=== PATIENT | female | born 1980 | race Caucasian/White ===

== ENCOUNTER 2017-09-11 15:11 | Outpatient (CLI) | payer OTHER ==
--- NOTE | 2017-09-11 17:10 | MRI ---
MRI OF THE LEFT KNEE WITHOUT CONTRAST: 09/11/17 INDICATION: Left knee pain since injury on August 08. COMPARISON: Prior left knee radiographs dated 08/10/17. FINDINGS: No joint effusion is evident. No popliteal cyst is demonstrated. The ACL, PCL, MCL, and LCLC are intact. The medial and lateral menisci are intact. The articular cartilage of the femorotibial and patellofemoral compartments appears preserved. There is some bone marrow edema involving the medial aspect of the superior patella on image 16 which may be related to direct contusion. The medial patellar retinaculum and medial patellofemoral ligam ent appears intact. IMPRESSION: Marrow edema involving the medial aspect of the patella may reflect sequela of direct or blunt injury . POS: [facility]
== END 2017-09-11 15:12 | disposition home or self-care (01) ==
LOC: SCSMRI 15:11
PROVIDERS: ATTEND Family Medicine
DX: S86.919A Strain of unspecified muscle(s) and tendon(s) at lower leg level, unspecified leg, initial encounter (principal); R60.0 Localized edema

== ENCOUNTER 2018-03-19 12:54 | Day surgery (SDC) | payer OTHER ==
[2018-03-18 09:48] VITALS: BMI 22.4
[~2018-03-19 12:54] MED LIST: Dexamethasone 20 MG/5 ML VIAL ONE; Lidocaine 1% PF 5 ML VIAL ONE; Ondansetron HCl/PF 4 MG/2 ML Vial ONE; PHENYLEPHRINE-NS 100 MCG/ML 10 ML SYRINGE ONE; PROPOFOL 200 MG/20 ML VIAL ONE
[2018-03-19] MEDS ORDERED: CEFAZOLIN/Water 2 GM/20 ML SYRINGE ONE (13:19)
[2018-03-19 13:50] LABS: #Basophils 0.1 thou/uL (0.0-0.2); #Eosinphils 0.2 thou/uL (0.0-0.7); #Lymphocytes 3.2 thou/uL (1.20-3.40); #Monocytes 0.5 thou/uL (0.11-0.59); #Neutrophils 4.9 thou/uL (1.40-6.50); %Basophils 1.3 % (0.0-1.0); %Eosinophils 1.9 % (0.0-10.0); %Lymphocytes 35.9 % (21.0-51.0); %Monocytes 5.4 % (0.0-10.0); %Neutrophils 55.5 % (42.0-75.0); Hemoglobin 12.4 g/dL (12.0-16.0); Mean Corpuscular HGB CONC 34.6 g/dL (32.0-36.0); Mean Corpuscular Hemoglobin 32.1 pg (27.0-31.0); Mean Corpuscular Volume 92.6 fL (78.0-98.0); Platelet Count 212 thou/uL (130-400); RBC Distribution Width 11.5 % (11.5-14.5); Red Blood Cell (RBC) Count 3.85 mill/uL (4.20-5.40); White Blood Cell (WBC) Count 8.8 thou/uL (4.8-10.8)
[2018-03-19] MEDS ORDERED: Lidocaine 2% Jelly 5 ML TUBE ONE (14:10)
[2018-03-19] MEDS ORDERED: Sodium Chloride 0.9% 10 ML ONE (14:55)
[2018-03-19] MEDS ORDERED: Bacitracin Zinc Ointment 30 gm TUBE ONE (14:55)
[2018-03-19] MEDS ORDERED: Bupivacaine PF 0.5% 30 ML VIAL ONE (14:55)
[2018-03-19] MEDS ORDERED: Ketorolac Tromethamine 30 MG/ML VIAL ONE ×2 (15:28→20:14)
[2018-03-19] MEDS ORDERED: Midazolam HCl 2 mg/2 ml Vial ONE ×2 (15:39→16:04)
[2018-03-19] MEDS ORDERED: Fentanyl 100 MCG/2 ML VIAL ONE ×2 (15:40→18:20)
[2018-03-19] MEDS ORDERED: Propofol 500 MG/50 ML VIAL ONE (16:40)
--- NOTE | 2018-03-19 21:01 | RAD ---
RIGHT FINGER TWO VIEW: 03/19/18 HISTORY: ORIF. COMPARISON: Finger radiograph 03/11/18. FINDINGS: Multiple fluoroscopic images were obtained. There are two screws through the middle phalanx base vola r aspect of the ring finger. There is also a screw through the hamate. IMPRESSION: Fluoroscopy for surgical use. POS: NATASHA
--- NOTE | 2018-03-20 05:12 | OP ---
DATE OF PROCEDURE: 03/19/2018 PREOPERATIVE DIAGNOSIS: Fracture dislocation, right ring finger proximal phalangeal joint (base of P 2 comminuted fracture with dislocation dorsal and sagittal plane). POSTOPERATIVE DIAGNOSIS: Fracture dislocation, right ring finger proximal phalangeal joint (base of P2 comminuted fracture with dislocation dorsal and sagittal plane). PROCEDURE PERFORMED: 1. C-arm supervision. 2. Arthrotomy with volar plate release, proximal phalangeal joint, right ring finger. 3. Open reduction and internal fixation proximal aspect of the middle phalanx intraarticular fractur e with irene-irene osteochondral graft from the ipsilateral right side. 4. Bone graft, open reduction and fixation of the hand make defect or hand make/carpal bone open red uction internal fixation of the scaphoid. ESTIMATED BLOOD LOSS: 20 mL TOURNIQUET TIME: 25 minutes. FINDINGS: 50% articular comminution and sagittal plane with gross instability, marked stretching of the full and irreparable comminution of the volar 40%-50% of the base of middle phalanx at the PIP kate int. DESCRIPTION OF PROCEDURE: After esophageal endotracheal anesthesia, limb was prepped and draped. Th e patient had the C-arm brought to the field. Closed reduction was accomplished and although we coul d see some bone, it whenever would align to less than 2 mm step off and therefore, we then proceeded to inject the patient. After timeout was done with 20 mL 0.5% Marcaine, 10 at the level of the MP kate int and 10 at the harvest site of the 4th and 5th carpometacarpal joint or hammering. We then volar approach made a Edouard incision beginning radially distally at the DIP joint flexor cre ase ulnarly across the PIP joint flexion crease and then radiated back towards the palm base. This k ept the skin and subcutaneous tissue medially. A neuroplasty was performed identified neurovascular bundle, protected throughout the entire field. We carried down, passed crease of the limbs to expose the collateral ligaments. I then released in the sheath between the two A3 pulleys and then dissect ed down to we could move the tendons completely ulnarly and completely radially. First on the radial side, release to be performed. Beginning on the radial side first, we performed a V-shaped release of the volar plate as far distal as possible. We then dissected back, which re-created a flap that w as proximally based. This allowed for complete exposure to the joint. We then noticed to visualize the fracture fragment which was in 4 pieces, none of which could even hold 0.035 K-wire, so we then r emoved these, banded and open reduction internal fixation primarily. We then from inside out/from th e arthrotomy of the joint inside out, we released the collaterals from the base of the middle phalanx . This was done radially and ulnarly. We then teased the dorsal capsule and was able to complete a shotgun with flexed and radially, the joint to visualize the comminution. The comminution was severe and therefore it was initially approximately 35%-40% direct involvement, but there was so much subch ondral comminution. We then ended up making a rectangular shaped donor plateau for hamate graft and that was approximately 9 mm wide, 5.5 mm high, and 4 mm deep. We reduced the shotgun joint, cup placed in moist Ray-Brittaney in this area and then proceeded to the wris t. Using this, I identified the 4th and 5th carpometacarpal joint, made a zigzag incision over this area as we had already given 10 mL of 0.5% Marcaine. The patient then had the joint capsule opened b y creating an ulnarly based flap, protecting the ulnar cutaneous nerves. We then visualized the join t, we had made our measurements as listed above and then at that same measurement of approximately 1 mL with, 4.5 mm depth, and height of approximately 5 mm, we harvested a bone graft. There was minima l comminution of this technique and we did not have to make osteotomy at the base of the component of the metacarpals. Now, we placed a moist sponge in the hamate defect, returned, sized the hamate fir st and had to reduce its height and depth to make it measures for him as possible. We then placed a K-wire to suck on 0.35, and then placed palmar to dorsal 1.5 screws with excellent fit. Both screws were approximately 2 mm we then changed to size 9 screws for a size 11. Had excellent purchase and at this time we reduced the joint, radiographs show excellent position of the joint and the join t was stable from -10 degrees extension passively to 110 degrees flexion. We then closed the V incision of the volar plate into a wide fashion lengthening it somewhat. We simran sed the portion of collaterals that was still visible back onto its attachments, all of this with a 4 -0 Vicryl. Then, we released the tourniquet and obtained hemostasis. We had excellent 1 second refi ll with the pink digit and we closed the skin with interrupted 5-0 nylon in simple pattern. At this point, we had visualized radiographs and showed that the joint was stable from 0 degrees, ext ension to 110 degrees of flexion. The patient had the attention turned to the donor site. Now, he had a defect that appeared to be sta ble, but still defect so in order to prevent further problems, we then placed a block of bone graft t hat was sized to fit the defect created in the hamate, used a standard drill measure screw technique and place this bone graft as of effort. Then, with the hemostasis obtained, we closed the caps ule over the carpometacarpal joints with [id number] 2-0 Vicryl, subcutaneous closed with 4-0 Mon ocryl interrupted, the patient had the final epidermal closure performed with 4-0 nylon interrupted m attress pattern. A total of 30 mL was given with last five divided between the 2 primary dressings. The patient was b rought to the operating room, bulky dressing with a splint covering the fourth and fifth digit withou t evidence of anesthetic or operative complication.
== END 2018-03-19 22:17 | disposition home or self-care (01) ==
LOC: SDC 12:54
PROVIDERS: ATTEND Orthopaedic Surgery Hand Surgery
PROC: 0PBM0ZZ Excision of Right Carpal, Open Approach (ICD-10-PCS; principal; 2018-03-19)
PROC: 0PST04Z Reposition Right Finger Phalanx with Internal Fixation Device, Open Approach (ICD-10-PCS; principal; 2018-03-19)
DX: S62.624A Displaced fracture of middle phalanx of right ring finger, initial encounter for closed fracture (principal); Z79.1 Long term (current) use of non-steroidal anti-inflammatories (NSAID); X58.XXXA Exposure to other specified factors, initial encounter
CPT/HCPCS: 76001; 84702; 85025; 96372; A4216; C1713; J1100; J1885; J2001; J2250; J2405; J2704; J3010; J3490; S0020

== ENCOUNTER 2018-08-26 06:37 | Day surgery (SDC) | payer OTHER ==
[2018-08-26 07:36] LABS: #Basophils 0.1 thou/uL (0.0-0.2); #Eosinphils 0.3 thou/uL (0.0-0.7); #Lymphocytes 2.5 thou/uL (1.20-3.40); #Monocytes 0.7 thou/uL (0.11-0.59); #Neutrophils 5.4 thou/uL (1.40-6.50); %Basophils 0.9 % (0.0-1.0); %Eosinophils 3.8 % (0.0-10.0); %Lymphocytes 28.2 % (21.0-51.0); %Monocytes 7.6 % (0.0-10.0); %Neutrophils 59.5 % (42.0-75.0); Hemoglobin 12.3 g/dL (12.0-16.0); Mean Corpuscular HGB CONC 32.7 g/dL (32.0-36.0); Mean Corpuscular Hemoglobin 30.7 pg (27.0-31.0); Mean Corpuscular Volume 93.9 fL (78.0-98.0); Mean Platelet Volume 8.8 fL (7.4-10.4); Platelet Count 198 thou/uL (130-400); RBC Distribution Width 11.9 % (11.5-14.5); Red Blood Cell (RBC) Count 4.01 mill/uL (4.20-5.40)
[2018-08-26] MEDS ORDERED: CEFAZOLIN 2 GM/50 ML BAG ONE (07:37)
[2018-08-26 07:42] LABS: BHCG - Serum Negative (NEGATIVE); Pregs Control Background? CLEAR/WHITE (CLR/WHITE); Pregs Control Bar Appear? YES (CONTROL BAR)
[2018-08-26 07:55] LABS: Anion Gap 11 mmol/L (10-20); BUN (Urea Nitrogen) 18 mg/dL (7.0-18.7); Calc. Creatinine Clearance 95 mL/min (70-130); Calcium 9.4 mg/dL (7.8-10.44); Carbon Dioxide 24 mmol/L (22-29); Chloride 109 mmol/L (98-107); Estimated GFR-MDRD 83; Glucose 94 mg/dL (70-105); Potassium 4.2 mmol/L (3.5-5.1); Sodium 140 mmol/L (136-145)
[2018-08-26 08:06] LABS: Bilirubin Negative (Negative); Blood, Urine Negative (Negative); Clarity CLEAR (Clear); Glucose, Urine (Dipstick) Negative (Negative); Leukocyte Negative (Negative); Nitrite Negative (Negative); Protein, Urine (Dipstick) Negative (Neg-Trace); Specific Gravity, Urine 1.025 (1.002-1.036); Urobilinogen 0.2 mg/dL (0.2-1.0)
[2018-08-26 08:11] LABS: Bacteria/HPF None Seen HPF (None Seen); Hyaline Casts/LPF 0-3 HYALINE CAST LPF (0-3 Hyaline); Pathc Cast-AUWi Flag 0.14 (0-2.49); RBC/HPF 0-3 HPF (0-3); Squamous Epithelial 0-3 HPF (0-3); WBC/HPF 0-3 HPF (0-3)
[2018-08-26] MEDS ORDERED: Midazolam HCl 2 mg/2 ml Vial ONE (08:25)
[2018-08-26] MEDS ORDERED: Fentanyl 100 MCG/2 ML VIAL ONE ×2 (08:25→08:46)
[2018-08-26] MEDS ORDERED: Bacitracin Zinc Ointment 30 gm TUBE ONE (08:32)
[2018-08-26] MEDS ORDERED: Bupivacaine PF 0.5% 30 ML VIAL ONE (08:32)
[2018-08-26] MEDS ORDERED: Betamet Acet/Betamet Na Ph 30 MG/5 ML VIAL ONE ×2 (08:34→09:23)
[2018-08-26] MEDS ORDERED: Ondansetron PF 4 MG/2 ML Vial IVP PRN (09:00)
[2018-08-26] MEDS ORDERED: traMADol HCl 50 MG TAB PO PRN ×2 (09:00)
[2018-08-26] MEDS ORDERED: Zolpidem Tartrate 5 MG TAB PO PRN (09:00)
[2018-08-26] MEDS ORDERED: HYDROcodone/Acetaminophen 5/325 mg Tablet PO PRN ×2 (09:00)
[2018-08-26] MEDS ORDERED: Ropivacaine 0.2% 550 ML 550 ML NERVE BLCK SCH (09:00)
[2018-08-26] MEDS ORDERED: Promethazine HCl 25 MG/ML VIAL IM PRN (09:00)
[2018-08-26] MEDS ORDERED: Fentanyl 100 MCG/2 ML VIAL SLOW IVP PRN (09:02)
[2018-08-26] MEDS ORDERED: Ketorolac Tromethamine 30 MG/ML VIAL IVP SCH (12:00)
[2018-08-26] MEDS ORDERED: Bupivacaine HCl 0.5%/Epinephrine 1:200,000/PF 30 ml Vial ONE (15:00)
--- NOTE | 2018-08-26 15:02 | OP ---
DATE OF PROCEDURE: 08/26/2018 PREOPERATIVE DIAGNOSES: 1. Reflex sympathetic dystrophy, severe involving the right ring finger. 2. PIP joint contracture, volar greater than dorsal. 3. Tendon adhesions, flexion greater than extension. 4. All diagnoses were confirmed to include protruding screw causing irritation with the tendons. POSTOPERATIVE DIAGNOSES: 1. Reflex sympathetic dystrophy, severe involving the right ring finger. 2. PIP joint contracture, volar greater than dorsal. 3. Tendon adhesions, flexion greater than extension. 4. All diagnoses were confirmed to include protruding screw causing irritation with the tendons. PROCEDURES PERFORMED: 1. Right ring finger volar capsulotomy. 2. Right ring finger dorsal arthrotomy with capsulotomy. 3. C-arm supervision for the operation. 4. Right ring finger flexor digitorum superficialis tenolysis. 5. Right ring finger flexor digitorum profundus tenolysis. 6. Right ring finger flexor digitorum superficialis tenotomy. 7. Right ring finger A1 dl release. 8. Right ring finger digital nerve neuroplasty. 9. Right ring finger deeper implant ( 2 x 1.5 screw removed from the previous procedure). INDICATION FOR PROCEDURE: The patient is now eight months after recurrent, unstable volar capsular lesion, fracture dislocation where joint was constructed with a irene-hamate bone graft applied screw fixation, but the patient developed severe RSD, would not move the finger actively, and then now has loss of active and passive motion. She had a preoperative passive loss of extension about 30 and preoperative passive loss of flexion of volar 40 degrees active. We believed this had been controlled with multiple injections and medication and now under block, we would like to perform release and restore as much function as possible. We warned the patient that she will not be totally normal after this, however. TOURNIQUET TIME: 71 minutes. BLOOD LOSS: 15 mL. DESCRIPTION OF PROCEDURE: After successful general LMA technique, the limb was prepped and draped. The patient then had a time-out accomplished. We then noted that passively she still did not have much more motion that she had on preop, so with block in affect, we exsanguinated the prepped limp, inflated tourniquet to 250 mmHg pressure, and then used a previous zigzag incision except we distended 1 cm distal and 2 cm proximal to the level of the mid A1 and A2 dl. Here, we saw immediate adhesions of the skin to the tendon and tendon sheath, the sheath and tendon to the neurovascular bundle, and very much adhesion of the flexor digitorum profundus to the superficialis just distal to the chiasm. There was also marked adherence to the remnants of the volar capsule and the screws. First, we performed a digital neuroplasty to protect the neurovascular bundle completely and it towards the entire field from the underlying bone and tendon. Then, we performed minimal extensive flexor tenolysis following going just slightly distal to the A4 dl call freeing it through the A4 for FDP and then freeing FDP from the FDS and then FDS and FDP from the floor of the midportion of the middle phalanx. Then, we performed a mini-arthrotomy, released the collaterals bluntly and sharply releasing remnant of the palmar capsule and at this time, visualized that the screws were tented over the flexor digitorum superficialis limb and this limb was on the radial side was now adherent. On the ulnar side, was now adherent to both the screw and the flexor digitorum profundus. Performed a tenotomy here to free this and then performed a formal flexor tenolysis throughout the entire feel. Once we had done this, excursion was great between the A2 and A4 dl, but we did still could not achieve flexion within a centimeter of palm space, which was our goal, so we extended the incision proximally, performed the A1 dl release, and then we were able to flex to 90 degrees, but at 90 degrees, there was a dorsal block. Thus, we then turned our attention to the dorsal digit, made a 2 cm incision zigzag over the proximal phalangeal joint, carried through the skin and subcutaneous tissue, first the ulnar side then the radial side. I made a longitudinal split of 1 cm between the central slip and the lateral bands, carried it down to reach the dorsal capsule, and then released the entire capsule on one side and then while we visualized the cut from the other side, we performed the same release and dorsal capsulotomy. At this point, we could passively now flex the PIP joint to 120 degrees and the palm of the finger contacted the tip at this right digit. We turned back to the flexor side, continued our very extensive flexor tenolysis, even the both limbs of the superficialis from the underlying bone to make sure there is no adhesions while protecting neurovascular bundle. Now, we pulled in the palm, the excursion was such that the patient could have passive extension to -10 degrees and passive flexion into the palm tip of the digit or 120 degrees at the PIP. We also saw that with extension there was some block and flexion, some block at the end based on the screws, so we removed the screws and then once we removed the screws, we saw radiographs with each screw removed at the bone was still stable throughout the entire range of the fractured heel. We now released the tourniquet, felt we had adequately achieved functional improvement, took radiographs with the tip of the digit passed and touching the palm, and then we deflated the tourniquet. We obtained hemostasis and placed 3 mL of Celestone palmarly and 2 dorsally. The patient had standard flexor tenolysis to include the expansion of the space for gliding and there were no complications. The patient then left the operating room after we released the tourniquet, had 1 second capillary refill at distal tip and it was pink and then we closed the wound with interrupted 4-0 Nylon at the primary release sites and no splint was applied because she is going to therapy tomorrow morning and we want her to move it as much as possible, the block was still in effect in the recovery room. Job ID: [id number]
[2018-08-26] MEDS ORDERED: PROPOFOL 200 MG/20 ML VIAL ONE (16:01)
[2018-08-26] MEDS ORDERED: Dexamethasone 20 MG/5 ML VIAL ONE (16:01)
[2018-08-26] MEDS ORDERED: PHENYLEPHRINE-NS 100 MCG/ML 10 ML SYRINGE ONE (16:01)
[2018-08-26] MEDS ORDERED: Lidocaine 1% PF 5 ML VIAL ONE (16:01)
[2018-08-26] MEDS ORDERED: Ondansetron PF 4 MG/2 ML Vial ONE (16:01)
[2018-08-26] MEDS ORDERED: Ketorolac Tromethamine 30 MG/ML VIAL ONE (16:01)
== END 2018-08-26 15:50 | disposition home or self-care (01) ==
LOC: SDC 06:37
PROVIDERS: ATTEND Orthopaedic Surgery Hand Surgery
PROC: 0LN70ZZ Release Right Hand Tendon, Open Approach (ICD-10-PCS; principal; 2018-08-26)
PROC: 0RNW0ZZ Release Right Finger Phalangeal Joint, Open Approach (ICD-10-PCS; principal; 2018-08-26)
PROC: 0RPW0JZ Removal of Synthetic Substitute from Right Finger Phalangeal Joint, Open Approach (ICD-10-PCS; principal; 2018-08-26)
DX: G90.511 Complex regional pain syndrome I of right upper limb (principal); M65.841 Other synovitis and tenosynovitis, right hand; M24.541 Contracture, right hand; T84.220A Displacement of internal fixation device of bones of hand and fingers, initial encounter; Z79.899 Other long term (current) drug therapy; Z98.890 Other specified postprocedural states
CPT/HCPCS: 36415; 76000; 80048; 81001; 84703; 85025; 85652; A4306; J0670; J0702; J1100; J1885; J2001; J2250; J2405; J2704; J2795; J3010; S0020

== ENCOUNTER 2018-08-27 16:37 | Emergency (ER) | payer OTHER ==
[2018-08-27 18:04] LABS: #Basophils 0.1 thou/uL (0.0-0.2); #Eosinphils 0.2 thou/uL (0.0-0.7); #Lymphocytes 3.9 thou/uL (1.20-3.40); #Monocytes 0.8 thou/uL (0.11-0.59); #Neutrophils 9.4 thou/uL (1.40-6.50); %Basophils 0.9 % (0.0-1.0); %Eosinophils 1.7 % (0.0-10.0); %Lymphocytes 26.8 % (21.0-51.0); %Monocytes 5.7 % (0.0-10.0); %Neutrophils 64.9 % (42.0-75.0); Hemoglobin 10.7 g/dL (12.0-16.0); Mean Corpuscular HGB CONC 32.3 g/dL (32.0-36.0); Mean Corpuscular Hemoglobin 30.7 pg (27.0-31.0); Mean Platelet Volume 8.7 fL (7.4-10.4); Platelet Count 169 thou/uL (130-400); RBC Distribution Width 12.1 % (11.5-14.5); Red Blood Cell (RBC) Count 3.47 mill/uL (4.20-5.40); White Blood Cell (WBC) Count 14.5 thou/uL (4.8-10.8)
== END 2018-08-27 19:00 | disposition home or self-care (01) ==
LOC: ERS 16:37
DX: I95.9 Hypotension, unspecified (principal); Z79.899 Other long term (current) drug therapy
CPT/HCPCS: 36415; 85025; 99284

== ENCOUNTER 2019-01-07 00:37 | Outpatient (CLI) | payer OTHER ==
[2019-01-07 10:07] LABS: #Eosinphils 0.4 thou/uL (0.0-0.7); #Lymphocytes 2.8 thou/uL (1.20-3.40); #Monocytes 0.5 thou/uL (0.11-0.59); #Neutrophils 4.8 thou/uL (1.40-6.50); %Basophils 0.5 % (0.0-1.0); %Eosinophils 5.3 % (0.0-10.0); %Lymphocytes 32.5 % (21.0-51.0); %Monocytes 5.4 % (0.0-10.0); %Neutrophils 56.3 % (42.0-75.0); Hemoglobin 12.2 g/dL (12.0-16.0); Mean Corpuscular HGB CONC 33.7 g/dL (32.0-36.0); Mean Corpuscular Hemoglobin 31.3 pg (27.0-31.0); Mean Corpuscular Volume 92.8 fL (78.0-98.0); Mean Platelet Volume 8.7 fL (7.4-10.4); Platelet Count 217 thou/uL (130-400); RBC Distribution Width 11.4 % (11.5-14.5); Red Blood Cell (RBC) Count 3.89 mill/uL (4.20-5.40); White Blood Cell (WBC) Count 8.5 thou/uL (4.8-10.8)
[2019-01-07 10:13] LABS: BHCG - Serum Negative (NEGATIVE); Pregs Control Background? CLEAR/WHITE (CLR/WHITE); Pregs Control Bar Appear? YES (CONTROL BAR)
[2019-01-07 10:28] LABS: Anion Gap 14 mmol/L (10-20); BUN (Urea Nitrogen) 11 mg/dL (7.0-18.7); Calc. Creatinine Clearance 0 mL/min (70-130); Calcium 9.4 mg/dL (7.8-10.44); Carbon Dioxide 27 mmol/L (22-29); Chloride 106 mmol/L (98-107); Estimated GFR-MDRD 86; Glucose 60 mg/dL (70-105); Potassium 3.9 mmol/L (3.5-5.1); Sodium 143 mmol/L (136-145)
[2019-01-07 10:59] LABS: Bacteria/HPF None Seen HPF (None Seen); Hyaline Casts/LPF 0-3 HYALINE CAST LPF (0-3 Hyaline); RBC/HPF 0-3 HPF (0-3); Squamous Epithelial 0-3 HPF (0-3)
== END 2019-01-07 00:38 | disposition home or self-care (01) ==
LOC: LABBT 00:37
PROVIDERS: ATTEND Orthopaedic Surgery Hand Surgery
DX: Z01.812 Encounter for preprocedural laboratory examination (principal); M19.141 Post-traumatic osteoarthritis, right hand; M77.9 Enthesopathy, unspecified
CPT/HCPCS: 80048; 81015; 84703; 85025

== ENCOUNTER 2019-01-09 07:58 | Day surgery (SDC) | payer OTHER ==
[2019-01-07 09:10] VITALS: BMI 22.4
[2019-01-09] MEDS ORDERED: Fentanyl 100 MCG/2 ML VIAL ONE ×3 (10:03→15:29)
[2019-01-09] MEDS ORDERED: Midazolam HCl 2 mg/2 ml Vial ONE (10:03)
[2019-01-09] MEDS ORDERED: Ropivacaine 0.2% HCl/PF (40 MG/20 ML VIAL) ONE (10:19)
[2019-01-09] MEDS ORDERED: Ropivacaine 0.5% HCl/PF (150 MG/30 ML VIAL) ONE (10:19)
[2019-01-09] MEDS ORDERED: ePHEDrine 50 MG/ML VIAL ONE (10:42)
[2019-01-09] MEDS ORDERED: Lidocaine 1% PF 5 ML VIAL ONE (10:42)
[2019-01-09] MEDS ORDERED: Ondansetron PF 4 MG/2 ML Vial ONE (10:42)
[2019-01-09] MEDS ORDERED: Phenylephrine HCL 10 MG/ML VIAL ONE (10:42)
[2019-01-09] MEDS ORDERED: Dexamethasone 20 MG/5 ML VIAL ONE (10:42)
[2019-01-09] MEDS ORDERED: PROPOFOL 200 MG/20 ML VIAL ONE (10:42)
[2019-01-09] MEDS ORDERED: Ketorolac Tromethamine 30 MG/ML VIAL IVP PRN (11:23)
[2019-01-09] MEDS ORDERED: Ondansetron PF 4 MG/2 ML Vial IVP PRN (11:23)
[2019-01-09] MEDS ORDERED: Ropivacaine 0.2% 550 ML 550 ML NERVE BLCK SCH (11:23)
[2019-01-09] MEDS ORDERED: Promethazine HCl 25 MG/ML VIAL IM PRN (11:23)
[2019-01-09] MEDS ORDERED: Zolpidem Tartrate 5 MG TAB PO PRN (11:23)
[2019-01-09] MEDS ORDERED: HYDROcodone/Acetaminophen 10/325 mg Tablet PO PRN ×2 (11:23)
[2019-01-09] MEDS ORDERED: traMADol HCl 50 MG TAB PO PRN ×2 (11:23)
[2019-01-09] MEDS ORDERED: Fentanyl 100 MCG/2 ML VIAL IV PRN (11:25)
[2019-01-09] MEDS ORDERED: Betamet Acet/Betamet Na Ph 30 MG/5 ML VIAL ONE (11:38)
[2019-01-09] MEDS ORDERED: Bupivacaine PF 0.5% 30 ML VIAL ONE (11:38)
[2019-01-09] MEDS ORDERED: Sodium Chloride 0.9% 10 ML ONE (11:39)
[2019-01-09] MEDS ORDERED: Bacitracin Zinc Ointment 30 gm TUBE ONE (11:39)
[2019-01-09] MEDS ORDERED: Ketorolac Tromethamine 30 MG/ML VIAL ONE (14:50)
--- NOTE | 2019-01-10 17:13 | RAD ---
RIGHT HAND: 01/10/19 Three fluoroscopic images obtained from OR. HISTORY: Imaging during right hand arthoplasty. FINDINGS/IMPRESSION: Fourth digit is imaged on this exam. The images are suboptimal. POS: OFF
--- NOTE | 2019-01-10 21:53 | OP ---
DATE OF PROCEDURE: 01/09/2019 PREOPERATIVE DIAGNOSES: 1. Right ring finger volar and dorsal capsule contracture. 2. Extensor adhesions. 3. Flexor adhesions, right ring finger. 4. Right ring finger posttraumatic osteoarthritis, proximal phalangeal joint. POSTOPERATIVE DIAGNOSES: 1. Right ring finger volar and dorsal capsule contracture. 2. Extensor adhesions. 3. Flexor adhesions, right ring finger. 4. Right ring finger posttraumatic osteoarthritis, proximal phalangeal joint with over 80% loss of articular surface at the proximal phalanx head and neck and with 50% loss on the base of the middle phalanx articular surface and proximally. PROCEDURE PERFORMED: 1. Right ring finger extensor tenolysis. 2. Right ring finger flexor tenolysis. 3. Palmar PIP joint capsulotomy. 4. Dorsal proximal interphalangeal joint capsulotomy. 5. Proximal phalangeal joint total joint arthroplasty using size zero Chelly Walcott/right implant silastic without metallic rim. ESTIMATED BLOOD LOSS: 50 mL. TOURNIQUET TIME: 102 minutes. DESCRIPTION OF PROCEDURE: After successful general endotracheal anesthesia by [employer] [facility] augmented by a 20 mL of 0.5% Marcaine block at the level of metacarpophalangeal joint and five along the palmar aspect, we then go more proximal to this, we did a time-out and identified the site, side, procedure matching. We prepped and draped the area, the chart, history and physical, and the consent. We then used the C-arm to confirm the joint and the Marcaine was given by the patient and surgeon agreement in preop. We then followed her old incision, extended it 5 mm distal and 1 cm proximal, carried through skin and subcutaneous tissue. We then saw flexor adhesions in the area between the A2 and A4 dl and lifted up the tendon and freed from the bone, removed the scar tissue and then lifted up the tendon and on both sides of the flexor tendon mass performed the PIP joint capsulectomy, check ring ligament release, and the volar plate was released as well. At this point, the patient had a passive loss of -40 degrees extension and after this, we could achieve zero extension without going back. We then went far proximal the palm to the A1 dl, pulled on the flexor tendons and could achieve flexion of the DIP joint of 30 degrees and made the whole finger to about 1 cm from the palm. We then released the tourniquet, had a pink digit. Placed Celestone in the area of the capsulotomy and the flexor tenolysis, and then we closed this wound with interrupted 4-0 nylon simple pattern. After 15 minutes, we then waited an additional 5 to have enough time to reinflate the tourniquet. We exsanguinated the limb, inflated tourniquet, and made a dorsal incision over the PIP joint. We carried this 1 cm distal to the joint and 2 cm proximal. We then identified the extensor mechanism, and did a Z opening where the longitudinal limb went down the center raphae both sides of the extensor tendon and left central slip intact on the bone. We then exposed the joint, which was now used to flex, freed the collaterals to the point we could make complete 120 degree flexion shotgun of the joint. We then brought a TPS-type saw blade 5 mm wide, placed a Colon elevator on the volar to the head of the proximal phalanx and made a cut that involved just as far back enough to where the collaterals were released. We then tagged them with a Dominguez stitch 4-0 Prolene on both the radial and ulnar collaterals. We then made a small palmar cut as well. We then made from a palmar to dorsal cut of 1 mm bone off the articular surface base of the middle phalanx. During this inspection, we saw the amount of arthritic loss described in "findings" above. We now began with starter awl progressively to ream and found it was very tight canal, especially proximally. We had to use a combination of a viola, neuro small curette, straight and curved, and the starter awl once again along with the 2P and 2D to achieve enough space to even get a zero inside with a good fit. Although joint may have been able to tolerate one, could not achieve enough depth in the one and the one prosthesis had overhang outside the level of the radial and ulnar limits of the joint, so we did not use it. We placed the zero trial and had excellent stability. We then chose a zero final Chelly Walcott, right silastic implant and placed in an appropriate position and the joint was stable to 110 degrees of flexion and +5 extension. Before we placed the final prosthesis then, we made a drill hole at the lateral edge of the proximal part of the joint prothesis, the cut portion of the proximal phalanx, and tied the collaterals through this hole using the 4-0 Prolene. They had excellent fit. Now, the joint was stable with only approximately 2 to 3 mm translation radial and ulnar stress at 0 and at 45 degrees. We then prepared for closure. We used a buried [id number] interrupted suture throughout the entire Z opening and closed them with no undue tension or tightening. Once this was done, we could again achieve 100 degrees of flexion without gap formation because we used a Z-plasty closure and we released the tourniquet. Had full extension. The patient then had a pink digit once again. We closed the wound on the dorsal surface with interrupted 4-0 nylon interrupted mattress pattern. The patient left the operating room without evidence of anesthetic or operative complication and in appropriate splint with the MP joint at 60 degrees PIP joint and DIP straight. Job ID: [id number]
== END 2019-01-09 17:30 | disposition home or self-care (01) ==
LOC: SDC 07:58 → EDSTATUS 09:00 → SDC 17:30
PROVIDERS: ATTEND Orthopaedic Surgery Hand Surgery
PROC: 0RNW0ZZ Release Right Finger Phalangeal Joint, Open Approach (ICD-10-PCS; principal; 2019-01-09)
PROC: 0LN70ZZ Release Right Hand Tendon, Open Approach (ICD-10-PCS; principal; 2019-01-09)
DX: M24.541 Contracture, right hand (principal); M19.141 Post-traumatic osteoarthritis, right hand; M77.9 Enthesopathy, unspecified; Z79.899 Other long term (current) drug therapy
CPT/HCPCS: 76000; A4306; C1776; J0690; J0702; J1100; J1885; J2001; J2250; J2370; J2405; J2704; J2795; J3010; J3490; S0020

== ENCOUNTER 2019-10-05 12:00 | Day surgery (SDC) | payer OTHER ==
[2019-10-02 12:26] VITALS: BMI 21.7
[~2019-10-05 12:00] MED LIST changes: -Dexamethasone 20 MG/5 ML VIAL ONE; -Lidocaine 1% PF 5 ML VIAL ONE; -Ondansetron HCl/PF 4 MG/2 ML Vial ONE; -PHENYLEPHRINE-NS 100 MCG/ML 10 ML SYRINGE ONE
[2019-10-05] MEDS ORDERED: Sodium Chloride 0.9% 10 ML ONE (12:42)
[2019-10-05] MEDS ORDERED: Betamet Acet/Betamet Na Ph 30 MG/5 ML VIAL ONE (12:42)
[2019-10-05] MEDS ORDERED: Bacitracin Zinc Ointment 30 gm TUBE ONE (12:42)
[2019-10-05] MEDS ORDERED: Bupivacaine PF 0.5% 30 ML VIAL ONE (12:42)
[2019-10-05 13:09] LABS: #Basophils 0.1 thou/uL (0.0-0.2); #Eosinphils 0.2 thou/uL (0.0-0.7); #Monocytes 0.6 thou/uL (0.11-0.59); #Neutrophils 5.2 thou/uL (1.40-6.50); %Basophils 0.8 % (0.0-1.0); %Eosinophils 2.5 % (0.0-10.0); %Lymphocytes 32.6 % (21.0-51.0); %Monocytes 6.8 % (0.0-10.0); %Neutrophils 57.3 % (42.0-75.0); Mean Corpuscular HGB CONC 33.7 g/dL (32.0-36.0); Mean Corpuscular Volume 94.8 fL (78.0-98.0); Mean Platelet Volume 8.2 fL (7.4-10.4); Platelet Count 234 thou/uL (130-400); RBC Distribution Width 11.8 % (11.5-14.5); Red Blood Cell (RBC) Count 3.75 mill/uL (4.20-5.40); White Blood Cell (WBC) Count 9.1 thou/uL (4.8-10.8)
[2019-10-05] MEDS ORDERED: Fentanyl 100 MCG/2 ML VIAL ONE ×2 (13:16→15:22)
[2019-10-05] MEDS ORDERED: Midazolam HCl 5 mg/5 ml Vial ONE (13:16)
[2019-10-05] MEDS ORDERED: Propofol 500 MG/50 ML VIAL ONE (13:17)
[2019-10-05] MEDS ORDERED: Ketorolac Tromethamine 30 MG/ML VIAL ONE ×2 (15:54→15:57)
--- NOTE | 2019-10-05 16:30 | OP ---
DATE OF PROCEDURE: 10/05/2019 PREOPERATIVE DIAGNOSIS: Right small finger suture granuloma with pain. Findings, no infection, 5 mm diameter granuloma underneath the dl sutures from deep ligaments repair, deep tendon repair, extensor mechanism. COMPLICATIONS: None. TOURNIQUET TIME: 7 minutes. INDICATION: The patient with history of RSD, who continues to have pain over suture granuloma despite conservative care to include injection, steroid injection, cessation of activity and therapy. DESCRIPTION OF PROCEDURE: After successful anesthesia to include propofol, 15 mL of 0.5% Marcaine metacarpophalangeal block level, we waited 5 minutes after a block and then exsanguinated the limb and inflated the tourniquet to 250 mmHg pressure. The patient then had the area undergo outline of an incision 5 mm distal and 5 mm proximal to the mass or total of 15 mm. The mass was ellipsed. The skin was removed in [place]/ellipse and underneath this was a large concentration of Prolene suture. All Prolene sutures under the mass were removed including a piece that was within the mass. Once this was done, the extensor mechanism was still intact grossly and we were able to flex the finger passively into the digit and touched the palm, which could not be done before the suture was removed. We then deflated the tourniquet, obtained hemostasis. We placed 3 mL of Celestone along the area of the granuloma bed after the granuloma was removed. We obtained hemostasis and closed the wound with interrupted 4-0 nylon in simple pattern. The patient left the operating room without evidence of anesthetic or operative complication. Job ID: [id number]
== END 2019-10-05 17:13 | disposition home or self-care (01) ==
LOC: SDC 12:00
PROVIDERS: ATTEND Orthopaedic Surgery Hand Surgery
PROC: 0HBFXZZ Excision of Right Hand Skin, External Approach (ICD-10-PCS; principal; 2019-10-05)
DX: T81.89XA Other complications of procedures, not elsewhere classified, initial encounter (principal)
CPT/HCPCS: 36415; 85025; 88305; J0690; J0702; J1885; J2250; J2704; J3010; J3490; S0020

== ENCOUNTER 2022-10-01 14:56 | Outpatient (CLI) | payer BC | END 2022-10-01 14:57 | disposition home or self-care (01) | LOC: SCSMRI 14:56 | PROVIDERS: ATTEND Family Medicine | DX: S46.002A Unspecified injury of muscle(s) and tendon(s) of the rotator cuff of left shoulder, initial encounter (principal); S46.012A Strain of muscle(s) and tendon(s) of the rotator cuff of left shoulder, initial encounter; S43.432A Superior glenoid labrum lesion of left shoulder, initial encounter; M77.8 Other enthesopathies, not elsewhere classified; M75.52 Bursitis of left shoulder; M67.814 Other specified disorders of tendon, left shoulder ==